=== PATIENT | male | born 1975 | race Caucasian/White ===

== ENCOUNTER 2020-01-05 12:08 | Emergency (ER) | payer OTHER, SELFPAY ==
[2020-01-05 12:09] VITALS: BP 149/76; PULSE 105; RESP 18; TEMP 36.7; O2SAT 100; BMI 26.6
--- NOTE | 2020-01-05 12:13 | ED.RN ---
hernan contact for patient- [phone]
[2020-01-05 12:25] LABS: Bedside Glucose 92 mg/dL (70-110)
--- NOTE | 2020-01-05 12:45 | EKG12_ITS ---
Test Reason : SOB Blood Pressure : / mmHG Vent. Rate : 091 BPM Atrial Rate : 091 BPM P-R Int : 164 ms QRS Dur : 104 ms QT Int : 336 ms P-R-T Axes : 029 020 012 degrees QTc Int : 413 ms Normal sinus rhythm Normal ECG Confirmed by ALFONZO ALBRIGHT, KRISTA ([id number]), movie editor RENETTA ACOSTA ([id number]) on 01/09/2020 2:35:17 PM Referred By: MARIBETH Confirmed By:KEATON MEJÍA MD
--- NOTE | 2020-01-05 12:46 | ED.DCSUM_ITS ---
History of Present Illness Chief Complaint: Weakness Informant: Patient Onset: Today, Hours - 1.5-2 hrs prior to eval Context: Sudden Onset - while sitting at desk at work Timing: Continuous Current Severity: Mild - lightheadedness now; dyspnea is resolved. Maximum Severity: Moderate Worsened by: nothing. nonexertional. Relieved by: lying down and gradually better after drinking a bunch of water. Associated Symptoms: anxious, sob, near-syncopal Narrative: Patient states he is an alcoholic and was admitted to the hospital for alcohol ketoacidosis around 3 weeks ago. He states he felt much better since he was discharged, however he has continued to drink, but not daily. Last night he dr ank a lot. He went to work today feeling dehydrated and malaised but otherwise okay. While sitting at his desk a short time ago, he believes he had a panic attack, but basically started feeling lightheaded and dyspnea, the symptoms became worse, he felt near syncopal but did not lose consciousness, he drank a lot of water and then went to his car to lie down, he states the dyspnea is gone now but he still feels weak and lightheaded and presents for evaluation. He denies any chest discomfort or pleuritic symptoms. No calf/leg pain or swelling lately. No history of DVT or PE. Past Medical History - Allergies and Home Meds Allergies/Adverse Reactions: Allergies No Known Allergies Allergy (Verified 01/05/20 12:12) Primary Care Physician: Doctor,Your [STAFF PHYSICIAN] - Past Medical History: None Alcohol: Heavy Drugs: None Review of Systems General: Reports: Malaise. Denies: Chills, Fever, Sweats Eyes: Denies: Visual changes - bilaterally, Diplopia ENT: Denies: Rhinorrhea, Sore throat Cardiovascular: Denies: Chest pain, Palpitations Respiratory: Reports: Dyspnea. Denies: Cough, Dyspnea on exertion Gastrointestinal: Denies: Abdominal pain, Nausea, Vomiting, Diarrhea, Melena, Hematochezia Genitourinary: Denies: Dysuria, Hematuria, Frequency Musculoskeletal: Denies: Back pain, Swelling, Extremity Pain Skin: Denies: Rash, Wounds Neurological: Denies: Headache, Weakness, Numbness Psych: Reports: Anxiety. Denies: Suicidal thoughts Physical Exam Vital Signs/Narrative: Vital Signs Temp Pulse Resp BP Pulse Ox 01/05/20 12:09 98.0 F 105 H 18 149/76 H 100 Inital Vital Signs reviewed: Yes General: Well nourished, Well developed, No Acute Distress Head: Normocephalic, Atraumatic Eyes: Perrl, EOMI ENT: Moist mucous membranes, No rhinorrhea Neck: Supple, Nontender Cardiovascular: Regular rate, Regular rhythm, No murmurs Respiratory: No distress, CTA bilaterally, Chest nontender Abdomen: Soft, Nontender, Nondistended, Normal bowel sounds Back: Nontender, Normal Inspection. Negative for: CVA tenderness Extremities: Nontender, No edema. Negative for: Calf Tenderness Skin: Normal color, No rash, No Trauma Neurological: Alert, Oriented x3, Cranial nerves II-XII grossly intact, Normal Strength, Normal Sensation, Normal Gait Psychological: Normal affect, Normal Mood Diagnostic/Tx/Re-eval Impressions Chest X-Ray 01/05/20 13:15 IMPRESSION: Hyperinflation. 7.8 mm noncalcified nodule in the right midlung. Electronically Signed: Ben Millan, at 13:32 EDT , Service support , 01/05/20 13:15 Chest 1 View (Portable) [RAD] Stat Laboratory Results 01/05/20 01/05/20 01/05/20 12:21 13:27 13:27 WBC 13.7 H RBC 5.51 Hgb 16.1 Hct 47.2 MCV 85.7 MCH 29.2 MCHC 34.1 RDW Std Deviation 36.6 RDW Coeff of Janet 11.7 Plt Count 331 MPV 8.8 Immature Gran % (Auto) 0.600 Neut % (Auto) 83.1 H Lymph % (Auto) 9.6 L Divide % (Auto) 5.8 Eos % (Auto) 0.5 Baso % (Auto) 0.4 Absolute Neuts (auto) 11.4 H Absolute Lymphs (auto) 1.31 Nucleated RBC % 0 D-Dimer Quant (PE/DVT) Specimen Type VBG pH VBG pO2 VBG HCO3 VBG O2 Sat (Calc) VBG O2 Content VBG Base Excess POC Mix VBG pCO2 Pt Tmp Sodium 139 Potassium 3.8 Chloride 106 Carbon Dioxide 25.0 Anion Gap 8 BUN 11 Creatinine 1.30 Estim Creat Clear Calc 78.76 Est GFR (MDRD) Af Amer 77 Est GFR (MDRD) Non-Af 63 BUN/Creatinine Ratio 8.5 L Glucose 84 Calcium 9.2 Troponin I < 0.015 Ethyl Alcohol Acetone Level POC Glucose 92 01/05/20 01/05/20 01/05/20 13:27 13:27 13:27 WBC RBC Hgb Hct MCV MCH MCHC RDW Std Deviation RDW Coeff of Janet Plt Count MPV Immature Gran % (Auto) Neut % (Auto) Lymph % (Auto) Divide % (Auto) Eos % (Auto) Baso % (Auto) Absolute Neuts (auto) Absolute Lymphs (auto) Nucleated RBC % D-Dimer Quant (PE/DVT) <= 0.27 Specimen Type VBG pH VBG pO2 VBG HCO3 VBG O2 Sat (Calc) VBG O2 Content VBG Base Excess POC Mix VBG pCO2 Pt Tmp Sodium Potassium Chloride Carbon Dioxide Anion Gap BUN Creatinine Estim Creat Clear Calc Est GFR (MDRD) Af Amer Est GFR (MDRD) Non-Af BUN/Creatinine Ratio Glucose Calcium Troponin I Ethyl Alcohol 12.0 Acetone Level NEGATIVE POC Glucose 01/05/20 13:44 WBC RBC Hgb Hct MCV MCH MCHC RDW Std Deviation RDW Coeff of Janet Plt Count MPV Immature Gran % (Auto) Neut % (Auto) Lymph % (Auto) Divide % (Auto) Eos % (Auto) Baso % (Auto) Absolute Neuts (auto) Absolute Lymphs (auto) Nucleated RBC % D-Dimer Quant (PE/DVT) Specimen Type MANA VBG pH 7.42 VBG pO2 41 H VBG HCO3 22 VBG O2 Sat (Calc) 78 H VBG O2 Content 23 VBG Base Excess -2 L POC Mix VBG pCO2 Pt Tmp 33.9 L Sodium Potassium Chloride Carbon Dioxide Anion Gap BUN Creatinine Estim Creat Clear Calc Est GFR (MDRD) Af Amer Est GFR (MDRD) Non-Af BUN/Creatinine Ratio Glucose Calcium Troponin I Ethyl Alcohol Acetone Level POC Glucose - Rhythm Strip Rhythm Strip: Sinus Rhythm Rate: 91 Ectopy: None - EKG Initial EKG Interpretation: Sinus Rhythm, No Acute Injury Pattern - normal EKG. - Medical Decision Making Patient did not want an IV, wanted to just drink fluid and have his blood drawn for testing. That was done, and as above, the tests are fairly unremarkable and rules out AKA. The PERC rule could not be used to rule out pulmonary embolus since he had some mild tachycardia at triage, although he is not tachycardic here on evaluation. Therefore d-dimer was sent, it returned negative essentially ruling out pulmonary embolus at this time. Patient was reassured, I agree that he probably was relatively dehydrated, he was walking back and forth to the bathroom several times the emergency department without any difficulty or recurrent lightheadedness and felt better on reevaluation. Plan is for discharge and outpatient follow-up. Advised to curb his drinking if able. ED Disposition - Plan for ED Patient: Disposition: Home or Assisted Living Diagnosis: Mild dehydration, Anxiety, Acute dyspnea, Near syncope Instructions: ED Dehydration Adult Referrals: Doctor,Your [STAFF PHYSICIAN] - Additional Instructions: Try to curb your drinking, and make sure you are an alcoholic drinking plenty of fluids after alcohol use.
--- NOTE | 2020-01-05 12:54 | NURSING ---
NO OLD EKGS
--- NOTE | 2020-01-05 13:15 | RAD_ITS ---
STUDY: X-RAY CHEST REASON FOR EXAM: Male, 44 years old. NEAR SYNCOPE TECHNIQUE: Single AP portable view of the chest. COMPARISON: None. FINDINGS: There is a 7.8 mm noncalcified nodule in the right midlung. Hyperinflation. There is no demonstrated pleural abnormality. Normal size heart. Normal mediastinum and jerica. Normal visualized pulmonary arteries. Normal visualized aortic arch and descending thoracic aorta. Normal visualized thoracic spine. Normal visualized ribs, clavicles, and shoulders. There is no demonstrated abnormality of the visualized soft tissue structures of the upper abdomen. RAD/Chest 1 View (Portable) IMPRESSION: Hyperinflation. 7.8 mm noncalcified nodule in the right midlung. Electronically Signed: Ben Millan, at 13:32 EDT , Service support ,
[2020-01-05 13:43] LABS: Absolute Lymphocyte Count 1.31 X10^3/uL (0.83-4.51); Absolute Neutrophil Count 11.4 X10^3/uL (2.0-7.7); Basophil# 0.06 X10^3/uL; Basophil% 0.4 % (0-1); Eosinophil# 0.07 X10^3/uL; Eosinophils% 0.5 % (0-5); Hematocrit 47.2 % (40-54); Hemoglobin 16.1 g/dL (13.0-16.5); Lymphocyte # 1.31 X10^3/ul (4.0); Lymphocyte % 9.6 % (19-41); Mean Corp Hgb Conc 34.1 g/dL (32-36); Mean Corpuscular Hgb 29.2 pg (27.0-32.0); Mean Corpuscular Volume 85.7 fL (80-94); Mean Platelet Vol. 8.8 fl (6.2-12.0); Monocyte% 5.8 % (0-10); NRBC Flagged by Analyzer 0 % (0-5); Neutrophil # 11.38 X10^3/uL (2.7-7.7); Neutrophil % 83.1 % (47-70); Platelet Count 331 K/mm3 (150-450); RBC Distribution Width CV 11.7 % (11.6-14.6); RBC Distribution Width SD 36.6 fl (35.1-43.9); Red Blood Count 5.51 M/mm3 (4.6-6.2); White Blood Count 13.7 K/mm3 (4.4-11.0)
[2020-01-05 13:50] LABS: Blood Gas Specimen Type VEN; VBG BASE EXCESS -2 mmol/L (-1.0-3.5); VBG Bicarbonate 22 mmol/L (22-26); VBG Oxygen Content 23 mmol/L (23-33); VBG PO2 41 mmHg (25-40); VBG SO2 78 % (50-70); VBG pCO2 33.9 mmHg (41-51); VBG pH 7.42 (7.32-7.42)
[2020-01-05 13:55] LABS: Anion Gap 8 (5-15); BUN 11 mg/dL (7-18); BUN/Creat Ratio 8.5 RATIO (10-20); Calcium,Total 9.2 mg/dL (8.5-10.1); Chloride 106 mmol/L (98-107); EST Glomerular Filtration Rate 63 mL/min (>60); Est Glom Filt Rate - Afr Amer 77 mL/min (>60); Estimated Creatinine Clearance 78.76 ml/min; Glucose 84 mg/dL (74-106); Potassium 3.8 mmol/L (3.5-5.1); Sodium Level 139 mmol/L (136-145)
[2020-01-05 14:55] LABS: D-Dimer Quantitative (DVT/PE) <= 0.27 FEU/ug/m (0.27-0.49)
[2020-01-05 15:17] VITALS: RESP 18
== END 2020-01-05 15:17 | disposition home or self-care (01) ==
PROVIDERS: Emergency Provider Emergency Medicine
DX: E86.0 Dehydration (principal); F41.9 Anxiety disorder, unspecified; R06.00 Dyspnea, unspecified; R55 Syncope and collapse
CPT/HCPCS: 71045; 80048; 80320; 82009; 82803; 82962; 84484; 85025; 85379; 93005; 99283; G0480

== ENCOUNTER → 2021-08-16 | Outpatient (CLI) | payer OTHER, SELFPAY ==
[2021-08-16 17:41] LABS: Absolute Lymphocyte Count 1.93 X10^3/uL (0.83-4.51); Absolute Neutrophil Count 4.7 X10^3/uL (2.0-7.7); Basophil# 0.06 X10^3/uL; Basophil% 0.8 % (0-1); Eosinophil# 0.26 X10^3/uL; Eosinophils% 3.4 % (0-5); Hematocrit 45.3 % (40-54); Hemoglobin 15.5 g/dL (13.0-16.5); Lymphocyte # 1.93 X10^3/ul (0.83-4.51); Lymphocyte % 25.1 % (19-41); Mean Corp Hgb Conc 34.2 g/dL (32-36); Mean Corpuscular Hgb 29.4 pg (27.0-32.0); Mean Corpuscular Volume 85.8 fL (80-94); Mean Platelet Vol. 9.3 fl (6.2-12.0); Monocyte# 0.73 X10^3/uL; Monocyte% 9.5 % (0-10); NRBC Flagged by Analyzer 0 % (0-5); Neutrophil # 4.68 X10^3/uL (2.7-7.7); Neutrophil % 60.9 % (47-70); Platelet Count 284 K/mm3 (150-450); RBC Distribution Width CV 12.6 % (11.6-14.6); RBC Distribution Width SD 39.2 fl (35.1-43.9); Red Blood Count 5.28 M/mm3 (4.6-6.2); White Blood Count 7.7 K/mm3 (4.4-11.0)
[2021-08-16 17:56] LABS: ALB/GLOB Ratio 1.4 RATIO (0.9-2.4); AST(SGOT) 18 U/L (15-37); Alanine Aminotransfer ALT/SGPT 65 U/L (16-61); Albumin, Serum 4.1 g/dL (3.2-5.0); Alkaline Phosphatase 66 U/L (45-117); Anion Gap 7 (5-15); BUN 16 mg/dL (7-18); BUN/Creat Ratio 11.3 RATIO (10-20); Calcium,Total 9.2 mg/dL (8.5-10.1); Chloride 107 mmol/L (98-107); Creatinine, Serum 1.41 mg/dL (0.70-1.30); EST Glomerular Filtration Rate 57 mL/min (>60); Est Glom Filt Rate - Afr Amer 69 mL/min (>60); Globulin 2.9 g/dL (2.2-4.2); Glucose 101 mg/dL (74-106); Lipase 140 U/L (73-393); Potassium 3.6 mmol/L (3.5-5.1); Sodium Level 139 mmol/L (136-145); T4 Free Direct 0.99 ng/dL (0.76-1.46); Thyroid Stim Hormone (TSH) 0.73 uIU/mL (0.358-3.74)
[2021-08-26 13:31] LABS: Vitamin B1, Thiamine 120.1 nmol/L (66.5-200.0)
== END | disposition home or self-care (01) ==
LOC: MFPLAB 16:07
PROVIDERS: PCP Family Medicine; Referring Provider Family Medicine; Visit Provider Family Medicine
DX: R10.9 Unspecified abdominal pain (principal); F10.10 Alcohol abuse, uncomplicated; E04.1 Nontoxic single thyroid nodule
CPT/HCPCS: 36415; 80053; 82746; 83690; 84425; 84439; 84443; 85025

== ENCOUNTER → 2021-09-26 | Outpatient (CLI) | payer OTHER, SELFPAY ==
[2021-09-26 15:41] LABS: Anion Gap 8 (5-15); BUN 14 mg/dL (7-18); BUN/Creat Ratio 10.6 RATIO (10-20); Calcium,Total 9.7 mg/dL (8.5-10.1); Chloride 105 mmol/L (98-107); Creatinine, Serum 1.32 mg/dL (0.70-1.30); EST Glomerular Filtration Rate 62 mL/min (>60); Est Glom Filt Rate - Afr Amer 75 mL/min (>60); Glucose 106 mg/dL (74-106); Potassium 3.6 mmol/L (3.5-5.1); Sodium Level 137 mmol/L (136-145)
== END | disposition home or self-care (01) ==
LOC: MFPLAB 13:09
PROVIDERS: PCP Family Medicine; Referring Provider Family Medicine; Visit Provider Family Medicine
DX: R94.4 Abnormal results of kidney function studies (principal)
CPT/HCPCS: 36415; 80048

== ENCOUNTER → 2021-10-24 | Outpatient (CLI) | payer OTHER, SELFPAY ==
--- NOTE | 2021-10-24 12:14 | US_ITS ---
STUDY: THYROID ULTRASOUND REASON FOR EXAM: Male, 46 years old. NODULE TECHNIQUE: Ultrasound evaluation of the thyroid was performed with real-time and static oden-scale imaging. COMPARISON: None. FINDINGS: RIGHT LOBE: The right lobe of the thyroid gland measures 4.9 cm x 1.8 cm x 1.6 cm. There is a homogeneous echotexture. There are no demonstrated solid, cystic or complex lesions. LEFT LOBE: The left lobe of the thyroid gland is small in size and measures 1.4 cm x 1.5 cm x 1.4 cm. There is a homogeneous echotexture. There are no demonstrated solid, cystic or complex lesions. ISTHMUS: The isthmus measures 3 mm. The regional lymph nodes are normal. US/Thyroid IMPRESSION: Normal ultrasound examination of the thyroid. Decreased size of the left lobe of the thyroid. Electronically Signed: Ben Millan MD at 13:37 EDT ,
== END | disposition home or self-care (01) ==
PROVIDERS: PCP Family Medicine; Referring Provider Family Medicine; Visit Provider Family Medicine
DX: E04.1 Nontoxic single thyroid nodule (principal)
CPT/HCPCS: 76536